=== PATIENT | male | born 1965 | race Caucasian/White ===

== ENCOUNTER 2018-05-25 15:45 | Inpatient (IN) | payer SELFPAY ==
[~2018-05-25] VITALS: Ht 182.9 cm; Wt 94.8 kg
[2018-05-25 17:08] LABS: Basophils # (auto) 0 uL; Basophils % (auto) 0.4 % (0.0-2.0); Eosinophils # (auto) 0 uL; Eosinophils % (auto) 0.2 % (0.0-7.0); Hematocrit 50.2 % (41.0-53.0); Hemoglobin 17.4 g/dL (13.5-17.5); Lymphocytes # (auto) 1.5 uL; Lymphocytes % (auto) 17.7 % (10.0-50.0); Mean Corpuscular Hemoglobin 30.2 pg (28.0-32.0); Mean Corpuscular Hgb Conc. 34.8 g/dL (32.0-36.0); Monocytes # (auto) 0.6 uL; Neutrophils # (auto) 6.5 uL; Neutrophils % (auto) 74.7 % (37.0-80.0); Nucleated Red Blood Cells % 0.1 %; Platelet Count (auto) 213 10^3/uL (140-450); Red Blood Cells 5.77 10^6/uL (4.5-5.90); Red Cell Distribution Width 13.4 % (11.8-14.3); White Blood Cell 8.7 10^3/uL (4.4-10.8)
[2018-05-25 17:19] LABS: Alanine Aminotransferase 26 U/L (16-61); Albumin 4.1 g/dL (3.4-5.0); Anion Gap 11 (5-15); Aspartate Aminotransferase 22 U/L (15-37); BUN/Creatinine Ratio 12.6; Blood Urea Nitrogen 14 mg/dL (7-18); Calcium 8.5 mg/dL (8.5-10.1); Carbon Dioxide 22 mmol/L (21-32); Chloride 108 mmol/L (98-107); GFR African American 89 mL/min; GFR Non-African American 73 mL/min; Glucose 145 mg/dL (74-106); Potassium 3.3 mmol/L (3.5-5.1); Sodium 141 mmol/L (136-145)
[2018-05-25 17:24] LABS: Alkaline Phosphatase 61 U/L (45-117); Bilirubin, Total 0.8 mg/dL (0.2-1.0); Total Protein 7.3 g/dL (6.4-8.2)
[2018-05-25] MEDS ORDERED: LORazepam 2MG/ML-1ML VIAL IV ONE (17:30)
[2018-05-25] MEDS ORDERED: LORazepam 2MG/ML-1ML VIAL IV PRN ×2 (19:15)
[2018-05-25 20:13] LABS: Alcohol, Urine < 3.0 mg/dL (0-5); Amphetamine Screen, Urine NEGATIVE (NEGATIVE); Barbiturate Scree,Urine NEGATIVE (NEGATIVE); Benzodiazephine Screen, Urine NEGATIVE (NEGATIVE); Cannabinoid Screen, Urine NEGATIVE (NEGATIVE); Cocaine Screen, Urine NEGATIVE (NEGATIVE); Opiate Scree,Urine NEGATIVE (NEGATIVE); Phencyclidine Screen, Urine NEGATIVE (NEGATIVE)
[2018-05-25] MEDS ORDERED: ACETAMINOPHEN 500 MG TAB PO PRN (21:15)
[2018-05-25] MEDS ORDERED: ONDANSETRON HCL 4 MG/2 ML VIAL IV PRN (21:15)
[2018-05-25] MEDS ORDERED: POTASSIUM CHL 20 Meq TABLET PO ONE (21:45)
[2018-05-25] MEDS: LEVETIRACETAM 500 MG TAB PO SCH (21:46)
[2018-05-25 23:02] VITALS: BP 125/77
[2018-05-26 05:00] VITALS: BP 123/77
[2018-05-26] MEDS ORDERED: LISI2.5T47 PO (05:24)
[2018-05-26] MEDS ORDERED: METO25TA62 PO (05:24)
[2018-05-26] MEDS ORDERED: ASPI-231 PO (05:24)
[2018-05-26] MEDS ORDERED: SIMV-8 PO (05:24)
--- NOTE | 2018-05-26 06:38 | NUR ---
Shift Note The patient arrived to the floor at approx 2230hrs. He was in good spirits, A&Ox4, Ambulatory, denied pain. He had no memory of the seizure he had at work but understands that he did have one. This is the patient's first seizure, patient teaching was completed to include not ambulating too far from his room in case he had a seizure. Admission paper work completed, will continue to monitor.
[2018-05-26 06:39] LABS: Basophils # (auto) 0 uL; Basophils % (auto) 0.4 % (0.0-2.0); Eosinophils # (auto) 0 uL; Eosinophils % (auto) 0.3 % (0.0-7.0); Hematocrit 44.7 % (41.0-53.0); Hemoglobin 15.5 g/dL (13.5-17.5); Lymphocytes # (auto) 1.3 uL; Lymphocytes % (auto) 14.9 % (10.0-50.0); Mean Corpuscular Hemoglobin 30.3 pg (28.0-32.0); Mean Corpuscular Hgb Conc. 34.7 g/dL (32.0-36.0); Mean Corpuscular Volume 87.3 fL (80.0-100.0); Monocytes # (auto) 0.9 uL; Monocytes % (auto) 10.1 % (0.0-12.0); Neutrophils # (auto) 6.5 uL; Neutrophils % (auto) 74.3 % (37.0-80.0); Nucleated Red Blood Cells % 0.1 %; Platelet Count (auto) 172 10^3/uL (140-450); Red Blood Cells 5.12 10^6/uL (4.5-5.90); Red Cell Distribution Width 13.4 % (11.8-14.3); White Blood Cell 8.7 10^3/uL (4.4-10.8)
[2018-05-26 06:52] LABS: Potassium 3.6 mmol/L (3.5-5.1)
[2018-05-26 06:55] LABS: Calcium 8.4 mg/dL (8.5-10.1)
--- NOTE | 2018-05-26 08:00 | NUR ---
OPENING NOTE OBSERVED PT SITTING UP IN BED, NO SOB/DISTRESS NOTED. PT STATING HE IS 'JUST WANTING TO GO HOME TODAY'. INFORMED PT OF PENDING MRI AND EEG, VERBALIZED UNDERSTANDING. FALL PRECAUTIONS AND SEIZURE PRECAUTIONS IN PLACE. WILL CONTINUE TO MONITOR Q1H AND PRN. CONTINUE PT CARE.
[2018-05-26 08:55] VITALS: BP 118/65
--- NOTE | 2018-05-26 09:03 | NUR ---
EEG CALLED SUPERVISOR PURIFICATION TO CHECK ON STATUS OF PROCEDURE. AWARE. STATING WILL BE COMPLETED TODAY. SPOKE TO TIMBO.
[2018-05-26] MEDS: LEVETIRACETAM 500 MG TAB PO SCH (09:47)
--- NOTE | 2018-05-26 09:48 | NUR ---
EEG EEG IN PROGRESS.
[2018-05-26] MEDS ORDERED: ASPirin-EC 81 mg tab PO SCH (10:00)
[2018-05-26] MEDS ORDERED: PANTOPRAZOLE 40 MG TAB PO SCH (10:00)
[2018-05-26] MEDS ORDERED: LISINOPRIL 5 MG TAB PO SCH (10:00)
[2018-05-26] MEDS ORDERED: METOPROLOL TARTRATE 25 MG TAB PO SCH (10:00)
--- NOTE | 2018-05-26 10:20 | NUR ---
FAMILY AT BEDSIDE PATIENTS SIGNIFICANT OTHER AT BEDSIDE, UPDATED ON POC. VERBALIZED UNDERSTANDING.
--- NOTE | 2018-05-26 10:27 | NUR ---
MRI PT TAKEN OFF UNIT FOR MRI VIA WC. NO DISTRESS NOTED AT TIME OF DEPARTURE.
--- NOTE | 2018-05-26 11:25 | NUR ---
TELE DISCONTINUED ORDERS RECEIVED TO DC ORDER. ORDER CARRIED OUT. TELE BOX RETURNED TO [facility] VIA BULLET SYSTEM.
--- NOTE | 2018-05-26 12:48 | NUR ---
PAGED PT STATING HE IS 'REALLY WANTING TO GO HOME TODAY'. MRI REPORT NOW AVAILABLE AND EEG COMPLETED. PAGED DR. PAGAN TO INFORM.
--- NOTE | 2018-05-26 12:53 | NUR ---
RETURNED PAGE DR. PAGAN RETURNED PAGE. STATING HE WILL SEE PATIENT MOMENTARILY.
[2018-05-26 13:03] VITALS: BP 122/68
--- NOTE | 2018-05-26 13:44 | NUR ---
DISCHARGE CLEARANCE DR. PAGAN ON UNIT. STATING PT IS CLEARED FOR DC. CALLED DR. GALVAN TO INFORM. STATING HE WILL PLACE DC ORDER.
--- NOTE | 2018-05-26 15:25 | NUR ---
DISCHARGE PATIENT GROWING INCREASINGLY IMPATIENT. STATING HE IS 'READY TO GO HOME ALREADY'. DR. GALVAN INFORMED, STATING HE WILL SEE PT MOMENTARILY.
--- NOTE | 2018-05-26 15:28 | NUR ---
AT BEDSIDE DR. GALVAN AT BEDSIDE DISCUSSING DC/POC WITH PT AND SIGNIFICANT OTHER. PT AWARE HE IS TO F/U WITH PCP IN 1 WEEK. PATIENT ALSO TO HAVE MRI WITH DYE WITH PCP. PT/SIGNIFICANT OTHER VERBALIZED UNDERSTANDING.
--- NOTE | 2018-05-26 16:00 | NUR ---
Discharge instructions given as ordered. Encourage to follow up with PMD as instructed. Pt aware of need for MRI with contrast. Pt also aware he is not to drive until cleared. All questions and concerns addressed. Patient verbalized understanding. Medication reconciliation form completed and copy given to patient. IV removed with catheter intact, pressure dressing applied. Telemetry unit previously returned to ICU. Patient ambulated off unit with all personal belongings, accompanied by family member. No distress noted at time of departure.
== END 2018-05-26 16:40 | disposition home or self-care (01) | DRG 101 ==
LOC: ER 15:45 → EDBD 15:45 → TELE 20:21 → TELE-CENTR 22:30 → CENTRAL 05-26 11:22
PROVIDERS: ADMIT Nurse Practitioner Family; ATTEND Nurse Practitioner Family
DX: G40.409 Other generalized epilepsy and epileptic syndromes, not intractable, without status epilepticus (principal); R94.02 Abnormal brain scan; E78.5 Hyperlipidemia, unspecified; I10 Essential (primary) hypertension; I25.10 Atherosclerotic heart disease of native coronary artery without angina pectoris; I25.2 Old myocardial infarction; Z79.82 Long term (current) use of aspirin; Z79.899 Other long term (current) drug therapy
CPT/HCPCS: 36415; 70450; 70551; 71045; 80048; 80053; 80307; 84484; 85025; 95819; G0378